=== PATIENT | male | born 1980 | race Two or more races ===

== ENCOUNTER 2024-07-27 18:55 | Emergency (ER) | payer MEDICAID, OTHER ==
[~2024-07-27] VITALS: Ht 175.3 cm; Wt 90.9 kg
--- NOTE | 2024-07-27 19:36 | ED.PDOC ---
History of Present Illness HPI Comments 44 y/o Hungarian speaking M, with only significant history of tobacco cigarette use, presents with c/o dizziness, shortness of breath, and chest pressure. 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 No prior history of symptoms endorsed. Worsens whenever standing and walking. Describes dizziness as a room spinning sensations. No recent ailments, sick contact, travel, or injuries reported. At time of assessment, patient endorses only his mouth being dry. Denies any further associated symptoms or modifiers. Time Seen by MD: 19:20 Reviewed Notes: Nurses Notes, Medications, Allergies Allergies: Coded Allergies: NO KNOWN ALLERGIES (Unverified , 07/27/24) Information Source: Patient Mode of Arrival: Ambulatory Severity: Moderate Timing: Hours Review of Systems: REVIEW OF SYSTEMS: No fever, no chills, or fatigue HEENT: Dry mouth, no sore throat, no earache, no congestion, no neck pain. Cardiac: Chest pressure. No palpitations. Lungs: Shortness of breath, no cough. GI: No nausea, no vomiting, no diarrhea, no constipation, no abdominal pain : No dysuria, frequency, or urgency. No hematuria. Musculoskeletal: No joint pain , no joint swelling, no extremity edema. Skin: No rash, no itching. Neuro: Dizziness, no headache, no weakness Vital Signs Vital Signs Date Time Temp Pulse Resp B/P (MAP) Pulse Ox O2 Delivery O2 Flow Rate FiO2 07/27/24 20:20 85 19 98 Room Air* 0 21 07/27/24 19:30 97.8 142/69 (93) 97.8 Physical Exam General: Awake, alert and oriented. No acute distress. Skin: Skin in warm, dry and intact. Appropriate color for ethnicity. HEENT: The head is normocephalic and atraumatic. Conjunctivae are clear without exudates or hemorrhage. Sclera is non-icteric. EOM are intact. No signs of nystagmus. Eyelids are normal in appearance without swelling or lesions. Oral mucosa is pink and moist Neck: The neck is supple with normal range of motion. No JVD. Cardiac: Heart rate and rhythm are normal. No murmurs, gallops, or rubs are auscultated. Worsening dizziness whenever going from a seated to a standing position. Respiratory: No signs of respiratory distress. Lung sounds are clear in all lobes bilaterally without rales, rhonchi, or wheezes. Abdominal: Abdomen is soft, non-tender without distention, guarding or rigidity. Bowel sounds are present and normoactive in all four quadrants. Extremities: Upper and lower extremities are atraumatic in appearance without deformity or edema. Neurological: The patient is awake, alert and oriented to person, place, and time with normal speech. Speech is clear. There is no facial asymmetry. Psychiatric: Appropriate mood and affect. Good judgement and insight. Past Medical History PAST MEDICAL HISTORY: Denies Surgical History: Denies all surgeries Family History Family History: Unknown Social History Smoker: Cigarettes Alcohol: Denies ETOH Use Drugs: Denies Drug Use Lives In: Home Was a procedure done? Was a procedure done?: No EKG EKG : Pulse Rate (adult): 57 [place]: Normal Cardiac Rhythm: NSR Block: None Hypertrophy: None ST: Normal Comments No STEMI Differential Dx Considerations may include: Differential diagnoses considered include acute ischemic coronary syndrome, aortic dissection, cardiac tamponade, mediastinitis, pulmonary embolus, pneumothorax, tension pneumothorax, esophageal rupture, coronary artery vasospasm, myocarditis, pericarditis, pneumonia, pulmonary edema, esophageal tear, pancreatitis, aortic stenosis, dilated cardiomyopathy, hypertrophic car diomyopathy, mitral valve prolapse, malignancy, pleuritis, pneumomediastinum, primary pulmonary hypertension, cholecystitis, esophageal spasm, esophagus, gastritis, GERD, peptic ulcer disease, costochondritis, fibromyalgia, rib fracture, herpes zoster, radicular syndromes, thoracic outlet syndrome, somatization. X-Ray, Labs, Meds, VS Vital Signs Date Time Temp Pulse Resp B/P (MAP) Pulse Ox O2 Delivery O2 Flow Rate FiO2 07/27/24 20:20 85 19 98 Room Air* 0 21 07/27/24 20:01 57 07/27/24 19:40 16 99 Room Air* 0 21 07/27/24 19:31 57 07/27/24 19:30 97.8 64 19 142/69 (93) 97 97.8 Lab Test 07/27/24 19:34 Range/Units White Blood Count 5.9 4.4-10.8 10^3/uL Red Blood Count 4.87 4.5-5.90 10^6/uL Hemoglobin 14.6 13.5-17.5 g/dL Hematocrit 42.7 41.0-53.0 % Mean Corpuscular Volume 87.7 80.0-100.0 fL Mean Corpuscular Hemoglobin 29.9 28.0-32.0 pg Mean Corpuscular Hemoglobin Concent 34.1 32.0-36.0 g/dL Red Cell Distribution Width 13.0 11.8-14.3 % Platelet Count 174 140-450 10^3/uL Mean Platelet Volume 10.3 6.9-10.8 fL Neutrophils (%) (Auto) 53.0 37.0-80.0 % Lymphocytes (%) (Auto) 36.9 10.0-50.0 % Monocytes (%) (Auto) 7.3 0.0-12.0 % Eosinophils (%) (Auto) 2.3 0.0-7.0 % Basophils (%) (Auto) 0.5 0.0-2.0 % Neutrophils # (Auto) 3.1 1.6-8.6 10 ^3/uL Lymphocytes # (Auto) 2.2 0.4-5.4 10 ^3/uL Monocytes # (Auto) 0.4 0-1.3 10 ^3/uL Eosinophils # (Auto) 0.1 0-0.8 10 ^3/uL Basophils # (Auto) 0 0-0.2 10 ^3/uL Nucleated Red Blood Cells 0.1 % Sodium Level 144 136-145 mmol/L Potassium Level 4.2 3.5-5.1 mmol/L Chloride Level 109 H 98-107 mmol/L Carbon Dioxide Level 28 20-31 mmol/L Anion Gap 7 5-15 Blood Urea Nitrogen 21 9-23 mg/dL Creatinine 0.99 0.700-1.30 mg/dL Glomerular Filtration Rate Calc 98 >90 mL/min BUN/Creatinine Ratio 21.2 H 10.0-20.0 Serum Glucose 105 74-106 mg/dL Calcium Level 9.4 8.7-10.4 mg/dL Total Bilirubin 0.4 0.2-1.0 mg/dL Aspartate Amino Transferase (AST) 22 13-40 U/L Alanine Aminotransferase (ALT) 32 7-40 U/L Alkaline Phosphatase 46 46-116 U/L Troponin I High Sensitivity < 3 L </=54 ng/L B-Type Natriuretic Peptide 11.69 0-100 pg/mL Total Protein 6.7 5.7-8.2 g/dL Albumin 4.4 3.2-4.8 g/dL Current Medications Medications (Trade) Dose Ordered Sig/Carolann Route Start Time Stop Time Status Last Admin Sodium Chloride 1,000 ml @ 1,000 mls/hr Q1H ONCE IV 07/27/24 19:30 07/27/24 20:29 DC 07/27/24 20:11 Albuterol (Ventolin Medneb) 2.5 mg ONCE ONCE NEB 07/27/24 19:30 07/27/24 19:31 DC 07/27/24 19:38 Time of 1ST Reevaluation: 19:50 Reevaluation 1ST: Unchanged Patient Education/Counseling: Treatment, Need For Follow Up Family Education/Counseling: No Family Present Departure 1 Departure Time of Disposition: 22:14 Impression: Primary Impression: Shortness of breath Disposition: 01 HOME / SELF CARE / HOMELESS Condition: Stable Additional Instructions: INSTRUCCIONES DE RONI DE Urgencias Instrucciones: Pattie atentamente todas las instrucciones proporcionadas en manda paquete. Aunque le hayan dado el roni del Departamento de Emergencias, esto no significa que tenga un "certificado de buena fernanda". Hoy no se cook realizado ningn diagnstico definitivo para gomez sntomas. Es posible que ests en proceso de desarrollar libertad enfermedad grave. Es por eso que debe regresar al servicio de urgencias sin falta si presenta algn sntoma nuevo o que empeora (especialmente si gomez sntomas incluyen dolor en el pecho, dificultad para respirar, dolor abdominal, fiebre, dolor de angelica, confusin, dificultad para tiki o caminar). Tambin es muy importante que consulte a un mdico de atencin primaria dentro de los prximos 1 a 3 umana para realizar un seguimiento. Si no puede conseguir libertad adele, regrese al servicio de urgencias para libertad nueva evaluacin. Dificultad para respirar: Instrucciones de cuidado Tabla de contenido Instrucciones de cuidado Rn Operating Room puedes cuidarte en casa? Cundo debes pedir ayuda? Crditos [place] interior del pecho, mostrando los pulmones rafael y derecho con el corazn en el medio. Instrucciones de cuidado La dificultad para respirar tiene muchas causas. En ocasiones, afecciones priya la ansiedad pueden provocarla. Algunas personas experimentan libertad leve dificultad para respirar al hacer ejercicio. La dificultad para respirar tambin puede ser sntoma de un problema grave, priya asma, enfermedad pulmonar, enfisema, pr oblemas cardacos y neumona. Si la dificultad para respirar persiste, podra necesitar pruebas y tratamiento. Est atento a cualquier cambio en maravilla respiracin y otros sntomas. El seguimiento es fundamental para maravilla tratamiento y seguridad. Asegrese de programar y acudir a todas gomez citas, y llame a maravilla mdico si tiene algn problema. Tambin es recomendable estar al tanto de los resultados de gomez pruebas y llevar libertad lista de los medicamentos que anayeli. Rn Operating Room puedes cuidarte en casa? No fume ni permita que otros fumen cerca de usted. Si necesita ayuda para dejar de fumar, consulte con maravilla mdico sobre programas y medicamentos para dejar de fumar. Estos pueden aumentar gomez probabilidades de dejarlo definitivamente. Descanse y duerma lo suficiente. [place] gomez medicamentos exactamente priya se los recetaron. Llame a maravilla mdico si lakhwinder que tiene algn problema con gomez medicamentos. Encuentre formas saludables de lidiar con el estrs. [place] ejercicio diariamente [place] lo suficiente. Come regularmente y bobo. Cundo debes pedir ayuda? Llame al 911 en cualquier momento que considere que necesita atencin de emergencia. Por ejemplo, llame si: Tiene dificultad para respirar grave. Tiene sntomas de un ataque cardaco. Estos pueden incluir: Dolor o presin en el pecho, o libertad sensacin extraa en el pecho. Transpiracin. Dificultad para respirar. Nuseas o vmitos. Dolor, presin o libertad sensacin extraa en la espalda, el j luis, la mandbula o la parte superior del abdomen o en vasile o ambos hombros o brazos. Mareo o debilidad repentina. Un ritmo cardaco rpido o irregular. Despus de llamar al 911 , el operador podra indicarle que mastique libertad as pirina para adultos o de 2 a 4 aspirinas de dosis baja. Espere la ambulancia. No intente conducir. Llame a maravilla mdico ahora o busque atencin mdica inmediata si: La dificultad para respirar empeora o empieza a tener sibilancias. Las sibilancias son sonidos agudos al respirar. Te despiertas por la noche sin aliento o tienes que apoyar la angelica sobre varias almohadas para respirar. Tiene dificultad para respirar despus de realizar libertad actividad ligera o mientras est en reposo. Preste atencin a los cambios en maravilla fernanda y asegrese de comunicarse con maravilla mdico si: No mejora en los siguientes 1 a 2 umana. Crditos para la dificultad para respirar: Instrucciones de cuidado Actualizado al: 2023 Autor: Personal de [facility] Junta de revisin clnica Toda la educacin de [facility], [facility] es revisada por un equipo que incluye mdicos, enfermeras, profesionales avanzados, dietistas registrados y otros profesionales de la fernanda. Comments 44-year-old male who presents with shortness of breath, dizziness. Vital signs within normal limits. EKG negative for signs of ischemia or arrhythmia. Serial High sensitivity troponin negative. CXR shows no acute process. Presentation not suggestive of acute coronary syndrome, pulmonary embolism or aortic dissection. Patient improved at time of discharge. No hypoxia, respiratory distress or dyspnea at discharge. Patient able to ambulate without difficulty. Extensive evaluation was performed in attempt to identify or rule out: (See differential diagnosis section) The following tests were ordered, and results were reviewed by me and discussed with patient: (See diagnostic results section) The following test were independently interpreted by me: EKG I reviewed and agreed with the following test results read by other providers: Chest x-ray I reviewed the following notes from the pt's past medical encounters: N/A Additional information was gathered from interviewing the following independent historians: N/A Discussion of management or test interpretation with external physician/other qualified health childcare administrator: N/A Decision regarding hospitalization or escalation of hospital level of care: Risks and benefits of admission for further treatment of patient's condition was considered however due to patient's stable condition patient will be discharged to follow up closely or return to care for worsening of condition or inability to follow up. Critical Care Note Critical Care Time?: No Stability Stability form required: No Heart Score Heart Score: Heart Score Response (Comments) Value History N/A 0 EKG N/A 0 Age N/A 0 Risk Factors N/A 0 Troponin N/A 0 Total 0 I personally scribed for AYDEN HARVEY MD ([email or web address]) on 07/27/24 at 19:36. Electronically submitted by Mark Milan ([email or web address]). I personally scribed for AYDEN HARVEY MD ([email or web address]) on 07/27/24 at 20:01. Electronically submitted by Mark Milan ([email or web address]). AYDEN HARVEY MD Jul 27, 2024 19:36
[2024-07-27] MEDS: ALBUTEROL SULF 2.5 MG/0.5ML(0.5%) NEB SOLN NEB ONE (19:38)
[2024-07-27 19:55] LABS: Basophils # (auto) 0 10 ^3/uL (0-0.2); Basophils % (auto) 0.5 % (0.0-2.0); Eosinophils # (auto) 0.1 10 ^3/uL (0-0.8); Eosinophils % (auto) 2.3 % (0.0-7.0); Hematocrit 42.7 % (41.0-53.0); Hemoglobin 14.6 g/dL (13.5-17.5); Lymphocytes # (auto) 2.2 10 ^3/uL (0.4-5.4); Lymphocytes % (auto) 36.9 % (10.0-50.0); Mean Corpuscular Hemoglobin 29.9 pg (28.0-32.0); Mean Corpuscular Hgb Conc. 34.1 g/dL (32.0-36.0); Mean Corpuscular Volume 87.7 fL (80.0-100.0); Monocytes # (auto) 0.4 10 ^3/uL (0-1.3); Monocytes % (auto) 7.3 % (0.0-12.0); Neutrophils # (auto) 3.1 10 ^3/uL (1.6-8.6); Nucleated Red Blood Cells % 0.1 %; Platelet Count (auto) 174 10^3/uL (140-450); Red Blood Cells 4.87 10^6/uL (4.5-5.90); White Blood Cell 5.9 10^3/uL (4.4-10.8)
[2024-07-27 20:09] LABS: Alanine Aminotransferase 32 U/L (7-40); Albumin 4.4 g/dL (3.2-4.8); Alkaline Phosphatase 46 U/L (46-116); Anion Gap 7 (5-15); Aspartate Aminotransferase 22 U/L (13-40); BUN/Creatinine Ratio 21.2 (10.0-20.0); Bilirubin, Total 0.4 mg/dL (0.2-1.0); Blood Urea Nitrogen 21 mg/dL (9-23); Calcium 9.4 mg/dL (8.7-10.4); Carbon Dioxide 28 mmol/L (20-31); Chloride 109 mmol/L (98-107); Glucose 105 mg/dL (74-106); Potassium 4.2 mmol/L (3.5-5.1); Sodium 144 mmol/L (136-145); Total Protein 6.7 g/dL (5.7-8.2)
[2024-07-27] MEDS: SODIUM CHLORIDE 0.9% 1,000 ML IV ONE (20:11)
--- NOTE | 2024-07-27 20:13 | DVH ---
CHEST RADIOGRAPH Indication: sob, dizziness Technique: Single frontal view of the chest was obtained Comparison: None FINDINGS: Lines and Tubes: None Lungs: No focal consolidation. Pleura: No effusion. No pneumothorax. Cardiomediastinal contours: Unremarkable Bones: No acute osseous abnormality. IMPRESSION: 1. No acute cardiopulmonary disease.
[2024-07-27 20:20] VITALS: PULSE 85; RESP 19; O2SAT 98
[2024-07-27 22:50] VITALS: BP 139/79; PULSE 78; RESP 16; TEMP 98.4; O2SAT 96
--- NOTE | 2024-07-28 06:06 | ECG ---
[facility] Test Date: 2024-07-27 Test Time: 19:29:18 Pat Name: ROOPA BLOUNT Department: ER Room: Gender: Capacity Manager: Tena : 1980 Requested By: AYDEN HARVEY Order Number: [id number] Reading MD: Yuan Kirk Measurements Intervals Roy Rate: 57 P: 65 MD: 164 QRS: 85 QRSD: 95 T: 37 QT: 378 QTc: 368 Interpretive Statements Sinus rhythm Electronically Signed On 07-29-2024 9:25:38 PDT by Yuan Kirk Please click the below link to view image of tracing.
== END 2024-07-27 22:52 | disposition home or self-care (01) ==
LOC: ER 18:59
DX: R06.02 Shortness of breath (principal); R07.89 Other chest pain; R42 Dizziness and giddiness; F17.210 Nicotine dependence, cigarettes, uncomplicated
CPT/HCPCS: 36415; 71045; 80053; 83880; 84484; 85025; 93005; 94640; 96360; 99285; J7030